=== PATIENT | male | born 1985 | race American Indian/Alaskan Native ===

== ENCOUNTER 2017-05-24 17:53 | Emergency (ER) | payer OTHER ==
[2017-05-24] MEDS ORDERED: FLEXERIL PO ONE (19:56)
[2017-05-24] MEDS ORDERED: MOTRIN PO ONE (19:56)
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
[2017-05-24 21:02] VITALS: BP 144/87
== END 2017-05-24 21:02 | disposition home or self-care (01) ==
LOC: ED 17:53
DX: S39.012A Strain of muscle, fascia and tendon of lower back, initial encounter (principal); I10 Essential (primary) hypertension; F17.200 Nicotine dependence, unspecified, uncomplicated; Z91.018 Allergy to other foods; V89.2XXA Person injured in unspecified motor-vehicle accident, traffic, initial encounter; Y93.89 Activity, other specified; Y99.8 Other external cause status; Y92.89 Other specified places as the place of occurrence of the external cause
CPT/HCPCS: 70450; 72040; 72100

== ENCOUNTER 2017-09-25 09:55 | Emergency (ER) | payer SELFPAY ==
[2017-09-25 10:17] LABS: Basophils % (Auto) 0.8 % (0.0-1.8); Eosinophils % (Auto) 0.4 % (0.0-4.3); Hemoglobin 16.1 gm/dl (11.8-15.2); Mean Corpuscular HGB Conc 34 % (32-34); Mean Corpuscular Hemoglobin 35 pg (28-32); Mean Corpuscular Volume 101 fl (84-94); Platelet Count 197 K/mm3 (140-440); Red Blood Count 4.67 M/mm3 (3.65-5.03); Red Cell Distribution Width 12.9 % (13.2-15.2); White Blood Count 9.3 K/mm3 (4.5-11.0)
[2017-09-25 10:39] LABS: Alanine Aminotransferase 38 units/L (7-56); Albumin 4.7 g/dL (3.9-5); Albumin/Globulin Ratio 1.2 %; Alkaline Phosphatase 72 units/L (35-129); Anion Gap 22 mmol/L; BUN/Creatinine Ratio 17; Blood Urea Nitrogen 15 mg/dL (9-20); Calcium 9.7 mg/dL (8.4-10.2); Carbon Dioxide 27 mmol/L (22-30); Chloride 94.9 mmol/L (98-107); Glucose 122 mg/dL (75-100); Lipase 236 units/L (13-60); Potassium 3.4 mmol/L (3.6-5.0); Sodium 140 mmol/L (137-145); Total Protein 8.5 g/dL (6.3-8.2)
[2017-09-25 10:42] LABS: Bacteria,Urine 1+ /HPF (Negative); Bilirubin,Urine Negative (Negative); Mucus,Urine 3+ /HPF
[2017-09-25 10:43] LABS: Blood,Urine Large (Negative); Ketones,Urine MODERATE mg/dL (Negative); Urobilinogen,Urine < 2.0 mg/dL (<2.0)
[2017-09-25 10:44] LABS: Leukocyte Esterase,Urine Negative (Negative); Nitrite,Urine Negative (Negative)
[2017-09-25] MEDS ORDERED: ZOFRAN IV ONE (11:48)
[2017-09-25] MEDS ORDERED: NACL 0.9% 1000 ML 1,000 ML IV ONE ×2 (11:48→14:41)
[2017-09-25] MEDS ORDERED: SUBLIMAZE IV ONE (11:48)
--- NOTE | 2017-09-25 11:59 | Emergency Department Report ---
HPI - General Chief Complaint: Abdominal Pain Time Seen by Provider: 09/25/17 11:28 - [facility] HPI: Villagomez 25 The patient is a 31-year-old male presenting with a chief complaint of abdominal pain. The patient states the past 2 days has had pain across the top of the stomach described as sharp in nature. Patient missed to nausea and vomiting but denies diarrhea or fever. Patient does admit to history of chills. Patient states he was diagnosed with pancreatitis and has had 4 or 5 flareups since his first diagnosis. The patient currently gives his pain score of 8/10 Location: Upper abdomen Duration: 2 days Quality: Sharp Severity: 8/10 Modifying factors: [see above] Context: [see above] Mode of transportation: Patient drove himself to the ED but agrees to be admitted ED Past Medical Hx - Past Medical History Hx Hypertension: Yes Additional medical history: pancreatitis - Surgical History Past Surgical History?: No - Family History Family history: no significant - Social History Smoking Status: Current Every Day Smoker (1/2 pack per day) Substance Use Type: None (denies illicit drug use), Alcohol (once a week) - Medications Home Medications: Home Medications Medication Instructions Recorded Confirmed Last Taken Type amLODIPine [Norvasc] 10 mg PO DAILY 09/25/17 09/25/17 Unknown History ED Review of Systems ROS: Stated complaint: ABD PAIN Other details as noted in HPI Constitutional: chills. denies: fever Gastrointestinal: abdominal pain, nausea, vomiting. denies: diarrhea Physical Exam - Physical Exam Vital Signs: Vital Signs 09/25/17 09/25/17 10:02 11:18 Temperature 98.8 F Pulse Rate 81 Respiratory 16 18 Rate Blood Pressure 134/107 O2 Sat by Pulse 97 Oximetry Physical Exam: GENERAL: The patient is well-developed well-nourished male lying on stretcher not appearing to be in acute distress. [] HEENT: Normocephalic. Atraumatic. Extraocular motions are intact. Patient has moist mucous membranes. NECK: Supple. Trachea midline CHEST/LUNGS: Clear to auscultation. There is no respiratory distress noted. HEART/CARDIOVASCULAR: Regular. There is no tachycardia. There is no gallop rub or murmur. ABDOMEN: Abdomen is soft, with diffuse tenderness to palpation. Patient has normal bowel sounds. There is no abdominal distention. SKIN: There is no rash. There is no edema. There is no diaphoresis. NEURO: The patient is awake, alert, and oriented. The patient is cooperative. The patient has normal speech MUSCULOSKELETAL: There is no evidence of acute injury. ED Course Vital Signs 09/25/17 09/25/17 10:02 11:18 Temperature 98.8 F Pulse Rate 81 Respiratory 16 18 Rate Blood Pressure 134/107 O2 Sat by Pulse 97 Oximetry ED Medical Decision Making - Lab Data Result diagrams: 09/25/17 10:06 09/25/17 10:06 Laboratory Tests 09/25/17 09/25/17 09/25/17 10:06 10:06 Unknown WBC 9.3 RBC 4.67 Hgb 16.1 H Hct 47.0 H MCV 101 H MCH 35 H MCHC 34 RDW 12.9 L Plt Count 197 Lymph % (Auto) 9.7 L Baxter % (Auto) 4.7 Eos % (Auto) 0.4 Baso % (Auto) 0.8 Lymph # 0.9 L Baxter # 0.4 Eos # 0.0 Baso # 0.1 Seg Neutrophils % 84.4 H Seg Neutrophils # 7.8 H Sodium 140 Potassium 3.4 L Chloride 94.9 L Carbon Dioxide 27 Anion Gap 22 BUN 15 Creatinine 0.9 Estimated GFR > 60 BUN/Creatinine Ratio 17 Glucose 122 H Calcium 9.7 Total Bilirubin 1.00 AST 31 ALT 38 Alkaline Phosphatase 72 Total Protein 8.5 H Albumin 4.7 Albumin/Globulin Ratio 1.2 Lipase 236 H Urine Color Yellow Urine Turbidity Clear Urine pH 5.0 Ur Specific [place] 1.035 H Urine Protein 100 mg/dl Urine Glucose (UA) Negative Urine Ketones Moderate Urine Blood Large A Urine Nitrite Negative Urine Bilirubin Negative Urine Urobilinogen < 2.0 Ur Leukocyte Esterase Negative Urine WBC (Auto) 5.0 Urine RBC (Auto) 12.0 U Epithel Cells (Auto) 1.0 Urine Bacteria (Auto) 1+ Urine Mucus 3+ - Differential Diagnosis pancreatitis Critical care attestation.: If time is entered above; I have spent that time in minutes in the direct care of this critically ill patient, excluding procedure time. ED Disposition Clinical Impression: Acute pancreatitis, Acute abdominal pain Disposition: OP ADMIT IP TO THIS HOSP Is pt being admited?: Yes Does the pt Need Aspirin: No Condition: Fair Referrals: PRIMARY CARE, [Primary Care Provider] - 3-5 Days Time of Disposition: 12:00 (hospitalist paged (Dr. Lowry))
--- NOTE | 2017-09-25 15:40 | History and Physical Report ---
History of Present Illness Chief complaint: My stomach hurts History of present illness: 31YO Male with Nicotine Dependence, Chronic Pancreatitis evaluated for abdominal pain. Pain 8/10, started 2 days ago. Nonradiating, persistent, worse with meals, buthas improved over the past 6 hours. Pt seen and evaluated in ED and found to have no significant findings. Pt discharged home, and counseled regarding ETOH cessation. Past History Past Medical History: other (Nicotine Dependence,) Past Surgical History: No surgical history, Other (reviewed) Social history: single, smoking, alcohol abuse Family history: no significant family history Medications and Allergies Allergies Allergy/AdvReac Type Severity Reaction Status Date / Time tomato Allergy Shortness Verified 05/24/17 18:12 of Breath Home Medications Medication Instructions Recorded Confirmed Last Taken Type Ondansetron [Zofran Odt] 4 mg PO BID PRN #15 tab.rapdis 09/25/17 Unknown Rx amLODIPine [Norvasc] 10 mg PO DAILY 09/25/17 09/25/17 Unknown History oxyCODONE /ACETAMINOPHEN [Percocet 1 tab PO Q4HR #15 tab 09/25/17 Unknown Rx 5/325] Active Meds: Active Medications Sodium Chloride (Nacl 0.9% 1000 Ml) 1,000 mls @ 999 mls/hr IV BOLUS ONE Stop: 09/25/17 15:41 Last Admin: 09/25/17 14:44 Dose: 999 mls/hr Review of Systems Constitutional: no weight loss, no weight gain, no fever, no chills Ears, nose, mouth and throat: no ear pain, no ear discharge, no tinnitis, no decreased hearing Cardiovascular: no chest pain, no orthopnea, no palpitations, no rapid/ irregular heart beat, no edema Respiratory: no cough, no cough with sputum, no excessive sputum, no hemoptysis Gastrointestinal: abdominal pain, no nausea, no vomiting, no diarrhea Genitourinary Male: no hematuria, no flank pain, no discharge, no urinary frequency Rectal: no pain, no incontinence, no bleeding Musculoskeletal: no neck stiffness, no neck pain, no shooting arm pain, no arm numbness/tingling, no low back pain Integumentary: no rash, no pruritis, no redness, no sores, no wounds Neurological: no head injury, no transient paralysis, no paralysis, no weakness Psychiatric: no memory loss, no change in sleep habits, no insomnia Endocrine: no cold intolerance, no heat intolerance, no polyphagia Hematologic/Lymphatic: no easy bruising, no easy bleeding Allergic/Immunologic: no urticaria, no allergic rhinitis, no wheezing Exam - Constitutional Vitals: Temp Pulse Resp BP Pulse Ox 98.8 F 81 18 134/107 97 09/25/17 10:02 09/25/17 10:02 09/25/17 11:18 09/25/17 10:02 09/25/17 10:02 General appearance: Present: no acute distress, well-nourished - EENT Eyes: Present: PERRL ENT: hearing intact, clear oral mucosa - Neck Neck: Present: supple, normal ROM - Respiratory Respiratory effort: normal Respiratory: bilateral: CTA - Cardiovascular Heart Sounds: Present: S1 & S2. Absent: rub, click - Extremities Extremities: pulses symmetrical, No edema Peripheral Pulses: within normal limits - Abdominal General gastrointestinal: Present: soft, non-tender, non-distended, normal bowel sounds Male genitourinary: Present: normal - Integumentary Integumentary: Present: clear, warm, dry - Musculoskeletal Musculoskeletal: gait normal, strength equal bilaterally - Psychiatric Psychiatric: appropriate mood/affect, intact judgment & insight - Neurologic Neurologic: CNII-XII intact, moves all extremities Results - Labs CBC & Chem 7: 09/25/17 10:06 09/25/17 10:06 Labs: Abnormal lab results 09/25/17 09/25/17 09/25/17 Range/Units 10:06 10:06 Unknown Hgb 16.1 H (11.8-15.2) gm/dl Hct 47.0 H (35.5-45.6) % MCV 101 H (84-94) fl MCH 35 H (28-32) pg RDW 12.9 L (13.2-15.2) % Lymph % (Auto) 9.7 L (13.4-35.0) % Lymph # 0.9 L (1.2-5.4) K/mm3 Seg Neutrophils % 84.4 H (40.0-70.0) % Seg Neutrophils # 7.8 H (1.8-7.7) K/mm3 Potassium 3.4 L (3.6-5.0) mmol/L Chloride 94.9 L (98-107) mmol/L Glucose 122 H (75-100) mg/dL Total Protein 8.5 H (6.3-8.2) g/dL Lipase 236 H (13-60) units/L Ur Specific [place] 1.035 H (1.003-1.030) Urine Blood Large A (Negative) Assessment and Plan - Patient Problems (1) Chronic pancreatitis Status: Acute Plan to address problem: Pain control, ivf resiscitation, ETOH cessation, f/u pcp 1wk,
[2017-09-25 16:34] VITALS: BP 153/94
== END 2017-09-25 16:36 | disposition admitted as inpatient to this hospital (09) ==
LOC: ED 09:55
DX: K85.90 Acute pancreatitis without necrosis or infection, unspecified (principal); I10 Essential (primary) hypertension; F17.200 Nicotine dependence, unspecified, uncomplicated
CPT/HCPCS: 36415; 80053; 81001; 83690; 85025; 96361; 96374; 96375; 99283; J2405; J3010; J7030

== ENCOUNTER 2018-12-01 21:05 | Emergency (ER) | payer OTHER ==
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
== END 2018-12-01 23:01 | disposition home or self-care (01) ==
LOC: ED 21:05
DX: S80.11XA Contusion of right lower leg, initial encounter (principal); I10 Essential (primary) hypertension; F17.200 Nicotine dependence, unspecified, uncomplicated; Z91.018 Allergy to other foods; X58.XXXA Exposure to other specified factors, initial encounter; Y93.89 Activity, other specified; Y92.89 Other specified places as the place of occurrence of the external cause; Y99.8 Other external cause status
CPT/HCPCS: 99281

== ENCOUNTER 2020-07-02 21:36 | Emergency (ER) | payer SELFPAY ==
[2020-07-03 00:28] LABS: Bilirubin,Urine NEG (Negative); Blood,Urine NEG (Negative); Color,Urine Colorless (Yellow); Protein,Urine <15 mg/dL mg/dL (Negative); Urobilinogen,Urine < 2.0 mg/dL (<2.0); WBC,Urine < 1.0 /HPF (0.0-6.0)
[2020-07-03 00:41] LABS: Amphetamine Screen,Urine PRESUMPTIVE NEGATIVE; Benzodiazepines Screen,Urine PRESUMPTIVE NEGATIVE; Cannabinoid Screen,Urine PRESUMPTIVE NEGATIVE; Cocaine Screen,Urine PRESUMPTIVE NEGATIVE; Methadone Screen,Urine PRESUMPTIVE NEGATIVE; Opiate Screen,Urine PRESUMPTIVE NEGATIVE
[2020-07-03 00:50] LABS: Basophils % (Auto) 0.5 % (0.0-1.8); Eosinophils # (Auto) 0.1 K/mm3 (0.0-0.4); Eosinophils % (Auto) 1.9 % (0.0-4.3); Lymphocytes # (Auto) 1.6 K/mm3 (1.2-5.4); Mean Corpuscular HGB Conc 36 % (32-34); Mean Corpuscular Volume 97 fl (84-94); Monocytes # (Auto) 0.4 K/mm3 (0.0-0.8); Monocytes % (Auto) 6.3 % (0.0-7.3); Platelet Count 221 K/mm3 (140-440); Red Blood Count 4.35 M/mm3 (3.65-5.03); Red Cell Distribution Width 14.1 % (13.2-15.2)
[2020-07-03 01:01] LABS: Hematocrit 41.9 % (35.5-45.6); Hemoglobin 15.1 gm/dl (11.8-15.2)
[2020-07-03 01:03] LABS: BUN/Creatinine Ratio 15; Blood Urea Nitrogen 12 mg/dL (9-20); Calcium 9.6 mg/dL (8.4-10.2); Hemolysis Index 5
[2020-07-03 02:01] VITALS: BP 140/93
--- NOTE | 2020-07-03 06:32 | Emergency Department Report ---
ED General Adult HPI - General Chief complaint: Alcohol Stated complaint: DETOX Time Seen by Provider: 07/03/20 02:18 Source: patient Mode of arrival: Ambulatory Limitations: No Limitations - History of Present Illness Initial comments: This is a 34-year old probably homeless -[place] male who states he came here for medical clearance. He states that he was in a detox program which he identifies as nearby but not well by name. He states that he was a client there about a week ago. He states he came here for medical clearance. He states he is able to return once he is medically clear. He is not suicidal depressed or hallucinating. He has no current complaints he is resting comfortably. -: unknown Severity scale (0 -10): 0 - Related Data Home Medications Medication Instructions Recorded Confirmed Last Taken amLODIPine [Norvasc] 10 mg PO DAILY 09/25/17 09/25/17 Unknown Previous Rx's Medication Instructions Recorded Last Taken Type Ondansetron [Zofran Odt] 4 mg PO BID PRN #15 tab.rapdis 09/25/17 Unknown Rx oxyCODONE /ACETAMINOPHEN [Percocet 1 tab PO Q4HR #15 tab 09/25/17 Unknown Rx 5/325] Allergies Allergy/AdvReac Type Severity Reaction Status Date / Time tomato Allergy Shortness Verified 05/24/17 18:12 of Breath ED Review of Systems ROS: Stated complaint: DETOX Other details as noted in HPI Constitutional: denies: chills, fever Eyes: denies: eye pain, vision change ENT: denies: ear pain, throat pain Respiratory: denies: cough, shortness of breath, wheezing Cardiovascular: denies: chest pain, palpitations Endocrine: no symptoms reported Gastrointestinal: denies: abdominal pain, nausea, diarrhea Genitourinary: denies: urgency, dysuria Musculoskeletal: denies: back pain, joint swelling, arthralgia Skin: denies: rash, lesions Neurological: denies: headache, weakness, paresthesias Psychiatric: denies: anxiety, depression Hematological/Lymphatic: denies: easy bleeding, easy bruising ED Past Medical Hx - Past Medical History Previous Medical History?: Yes Hx Hypertension: Yes Additional medical history: pancreatitis - Surgical History Past Surgical History?: Yes Additional Surgical History: knee - Social History Smoking Status: Current Every Day Smoker Substance Use Type: Alcohol - Medications Home Medications: Home Medications Medication Instructions Recorded Confirmed Last Taken Type Ondansetron [Zofran Odt] 4 mg PO BID PRN #15 tab.rapdis 09/25/17 Unknown Rx amLODIPine [Norvasc] 10 mg PO DAILY 09/25/17 09/25/17 Unknown History oxyCODONE /ACETAMINOPHEN [Percocet 1 tab PO Q4HR #15 tab 09/25/17 Unknown Rx 5/325] ED Physical Exam - General Limitations: No Limitations General appearance: alert, in no apparent distress - Head Head exam: Present: atraumatic, normocephalic - Eye Eye exam: Present: normal appearance, PERRL, EOMI. Absent: scleral icterus - ENT ENT exam: Present: mucous membranes moist - Neck Neck exam: Present: normal inspection - Respiratory Respiratory exam: Present: normal lung sounds bilaterally. Absent: respiratory distress - Cardiovascular Cardiovascular Exam: Present: regular rate, normal rhythm. Absent: systolic murmur, diastolic murmur, rubs, gallop - GI/Abdominal GI/Abdominal exam: Present: soft, normal bowel sounds. Absent: distended, tenderness, guarding, rebound, rigid - Rectal Rectal exam: Present: deferred - Extremities Exam Extremities exam: Present: normal inspection - Back Exam Back exam: Present: normal inspection - Neurological Exam Neurological exam: Present: alert, oriented X3, CN II-XII intact. Absent: motor sensory deficit - Psychiatric Psychiatric exam: Present: normal affect, normal mood - Skin Skin exam: Present: warm, dry, intact, normal color. Absent: rash ED Course Vital Signs 07/02/20 07/03/20 21:45 02:00 Temperature 97.2 F L 97.4 F L Pulse Rate 103 H 88 Respiratory 16 18 Rate Blood Pressure 131/86 Blood Pressure 140/93 [Left] O2 Sat by Pulse 98 100 Oximetry - Reevaluation(s) Reevaluation #1: Patient displays no evidence of alcohol withdrawal. He is mentally competent. He is fully ambulatory. He is medically clear for participation in a detox program if that is what he desires. He will be discharged. 07/03/20 06:53 Reevaluation #2: There was no evidence of alcohol withdrawal syndrome. 07/03/20 06:55 ED Medical Decision Making - Lab Data Result diagrams: 07/03/20 00:17 07/03/20 00:17 Laboratory Results - last 24 hr 07/02/20 07/02/20 07/03/20 23:19 23:19 00:17 WBC RBC Hgb Hct MCV MCH MCHC RDW Plt Count Lymph % (Auto) [place] % (Auto) Eos % (Auto) Baso % (Auto) Lymph # (Auto) [place] # (Auto) Eos # (Auto) Baso # (Auto) Seg Neutrophils % Seg Neutrophils # Sodium Potassium Chloride Carbon Dioxide Anion Gap BUN Creatinine Estimated GFR BUN/Creatinine Ratio Glucose Calcium Magnesium Urine Color Colorless Urine Turbidity Clear Urine pH 6.0 Ur Specific [place] 1.002 L Urine Protein <15 mg/dl Urine Glucose (UA) Neg Urine Ketones Neg Urine Blood Neg Urine Nitrite Neg Urine Bilirubin Neg Urine Urobilinogen < 2.0 Ur Leukocyte Esterase Neg Urine WBC (Auto) < 1.0 Urine RBC (Auto) 0.0 Salicylates < 0.3 L Urine Opiates Screen Presumptive negative Urine Methadone Screen Presumptive negative Acetaminophen Ur Barbiturates Screen Presumptive negative Ur Phencyclidine Scrn Presumptive negative Ur Amphetamines Screen Presumptive negative U Benzodiazepines Scrn Presumptive negative Urine Cocaine Screen Presumptive negative U Marijuana (THC) Screen Presumptive negative Drugs of Abuse Note Disclamer Plasma/Serum Alcohol 07/03/20 07/03/20 07/03/20 00:17 00:17 00:17 WBC RBC Hgb Hct MCV MCH MCHC RDW Plt Count Lymph % (Auto) [place] % (Auto) Eos % (Auto) Baso % (Auto) Lymph # (Auto) [place] # (Auto) Eos # (Auto) Baso # (Auto) Seg Neutrophils % Seg Neutrophils # Sodium 139 Potassium 4.0 Chloride 99.4 Carbon Dioxide 23 Anion Gap 21 BUN 12 Creatinine 0.8 Estimated GFR > 60 BUN/Creatinine Ratio 15 Glucose 104 H Calcium 9.6 Magnesium Urine Color Urine Turbidity Urine pH Ur Specific [place] Urine Protein Urine Glucose (UA) Urine Ketones Urine Blood Urine Nitrite Urine Bilirubin Urine Urobilinogen Ur Leukocyte Esterase Urine WBC (Auto) Urine RBC (Auto) Salicylates Urine Opiates Screen Urine Methadone Screen Acetaminophen 5.0 L Ur Barbiturates Screen Ur Phencyclidine Scrn Ur Amphetamines Screen U Benzodiazepines Scrn Urine Cocaine Screen U Marijuana (THC) Screen Drugs of Abuse Note Plasma/Serum Alcohol 0.28 H 07/03/20 07/03/20 00:17 02:23 WBC 7.1 RBC 4.35 Hgb 15.1 Hct 41.9 MCV 97 H MCH 35 H MCHC 36 H RDW 14.1 Plt Count 221 Lymph % (Auto) 23.0 [place] % (Auto) 6.3 Eos % (Auto) 1.9 Baso % (Auto) 0.5 Lymph # (Auto) 1.6 [place] # (Auto) 0.4 Eos # (Auto) 0.1 Baso # (Auto) 0.0 Seg Neutrophils % 68.3 Seg Neutrophils # 4.8 Sodium Potassium Chloride Carbon Dioxide Anion Gap BUN Creatinine Estimated GFR BUN/Creatinine Ratio Glucose Calcium Magnesium 2.40 H Urine Color Urine Turbidity Urine pH Ur Specific [place] Urine Protein Urine Glucose (UA) Urine Ketones Urine Blood Urine Nitrite Urine Bilirubin Urine Urobilinogen Ur Leukocyte Esterase Urine WBC (Auto) Urine RBC (Auto) Salicylates Urine Opiates Screen Urine Methadone Screen Acetaminophen Ur Barbiturates Screen Ur Phencyclidine Scrn Ur Amphetamines Screen U Benzodiazepines Scrn Urine Cocaine Screen U Marijuana (THC) Screen Drugs of Abuse Note Plasma/Serum Alcohol Critical care attestation.: If time is entered above; I have spent that time in minutes in the direct care of this critically ill patient, excluding procedure time. ED Disposition Clinical Impression: Alcohol abuse, Medical clearance for psychiatric admission Disposition: DC-01 TO HOME OR SELFCARE Is pt being admited?: No Does the pt Need Aspirin: No Condition: Stable Instructions: Abuse of Alcohol (ED) Additional Instructions: There is no medical contraindication for your participation in a detox program. You are medically clear. Referrals: PRIMARY CARE, [Primary Care Provider] - 3-5 Days [facility] [Outside] - 3-5 Days [facility] [Outside] - 3-5 Days Time of Disposition: 06:54
== END 2020-07-03 10:00 | disposition home or self-care (01) ==
LOC: ED 21:36
DX: F10.10 Alcohol abuse, uncomplicated (principal); I10 Essential (primary) hypertension; F17.200 Nicotine dependence, unspecified, uncomplicated; Z00.8 Encounter for other general examination; Z91.018 Allergy to other foods; Z79.899 Other long term (current) drug therapy; Z98.890 Other specified postprocedural states
CPT/HCPCS: 36415; 80048; 80307; 80320; 81001; 83735; 85025; G0480

== ENCOUNTER 2020-07-05 19:40 | Emergency (ER) | payer SELFPAY ==
[2020-07-05 19:49] VITALS: BP 137/83
--- NOTE | 2020-07-05 21:36 | Emergency Department Report ---
ED General Adult HPI - General Chief complaint: Medical Clearance Stated complaint: MEDICAL CLEARANCE Time Seen by Provider: 07/05/20 21:00 Source: patient Mode of arrival: Ambulatory Limitations: No Limitations - History of Present Illness Initial comments: 34-year-old -Citizen Of [place] male patient presents for medical clearance for admission to a medical facility for detox from alcohol today. Patient reports he is attempting to get admitted to [facility]. He denies any chest pain, shortness of breath, abdominal pain, fever/chills/sweats, or joint pains. He does report a mild 2/10 in severity headache x30 minutes. He denies any dizziness, vision changes, numbness/tingling/weakness in his limbs, confusion, or difficulty with speech/ambulation. He reports past medical history of hypertension - Related Data Home Medications Medication Instructions Recorded Confirmed Last Taken amLODIPine [Norvasc] 10 mg PO DAILY 09/25/17 07/03/20 07/02/20 Allergies Allergy/AdvReac Type Severity Reaction Status Date / Time tomato Allergy Shortness Verified 05/24/17 18:12 of Breath ED Review of Systems ROS: Stated complaint: MEDICAL CLEARANCE Other details as noted in HPI Constitutional: denies: chills, fever Eyes: denies: vision change Respiratory: denies: cough, shortness of breath Cardiovascular: denies: chest pain, palpitations, edema, syncope Gastrointestinal: denies: abdominal pain, nausea, vomiting Genitourinary: denies: urgency, dysuria Musculoskeletal: denies: joint swelling, arthralgia Skin: denies: change in color Neurological: headache. denies: numbness, paresthesias, confusion, abnormal gait Hematological/Lymphatic: denies: easy bruising ED Past Medical Hx - Past Medical History Hx Hypertension: Yes Additional medical history: pancreatitis - Surgical History Additional Surgical History: knee - Social History Smoking Status: Current Every Day Smoker Substance Use Type: Alcohol, Marijuana - Medications Home Medications: Home Medications Medication Instructions Recorded Confirmed Last Taken Type amLODIPine [Norvasc] 10 mg PO DAILY 09/25/17 07/03/20 07/02/20 History ED Physical Exam - General Limitations: No Limitations General appearance: alert, in no apparent distress - Head Head exam: Present: atraumatic, normocephalic - Eye Eye exam: Present: normal appearance, PERRL, EOMI. Absent: scleral icterus - ENT ENT exam: Present: mucous membranes moist - Neck Neck exam: Present: normal inspection - Respiratory Respiratory exam: Present: normal lung sounds bilaterally. Absent: respiratory distress - Cardiovascular Cardiovascular Exam: Present: regular rate, normal rhythm. Absent: systolic murmur, diastolic murmur, rubs, gallop - GI/Abdominal GI/Abdominal exam: Present: soft, normal bowel sounds. Absent: distended, tenderness, guarding, rebound, rigid - Extremities Exam Extremities exam: Present: normal inspection - Back Exam Back exam: Present: normal inspection - Neurological Exam Neurological exam: Present: alert, oriented X3, CN II-XII intact, normal gait. Absent: motor sensory deficit - Expanded Neurological Exam Expanded Cerebellar function: Finger to Nose: Normal, [place]: Normal Motor strength exam: RUE: 5, LUE: 5, RLE: 5, LLE: 5 - Psychiatric Psychiatric exam: Present: normal affect - Skin Skin exam: Present: warm, dry, intact, normal color. Absent: rash ED Course Vital Signs 07/05/20 19:48 Temperature 98.1 F Pulse Rate 85 Respiratory 18 Rate Blood Pressure 137/83 O2 Sat by Pulse 97 Oximetry ED Medical Decision Making - Lab Data Result diagrams: 07/05/20 21:57 07/05/20 21:57 Lab Results 07/05/20 07/05/20 07/05/20 Range/Units 21:15 21:15 21:57 WBC (4.5-11.0) K/mm3 RBC (3.65-5.03) M/mm3 Hgb (11.8-15.2) gm/dl Hct (35.5-45.6) % MCV (84-94) fl MCH (28-32) pg MCHC (32-34) % RDW (13.2-15.2) % Plt Count (140-440) K/mm3 Lymph % (Auto) (13.4-35.0) % [place] % (Auto) (0.0-7.3) % Eos % (Auto) (0.0-4.3) % Baso % (Auto) (0.0-1.8) % Lymph # (Auto) (1.2-5.4) K/mm3 [place] # (Auto) (0.0-0.8) K/mm3 Eos # (Auto) (0.0-0.4) K/mm3 Baso # (Auto) (0.0-0.1) K/mm3 Seg Neutrophils % (40.0-70.0) % Seg Neutrophils # (1.8-7.7) K/mm3 Sodium (137-145) mmol/L Potassium (3.6-5.0) mmol/L Chloride (98-107) mmol/L Carbon Dioxide (22-30) mmol/L Anion Gap mmol/L BUN (9-20) mg/dL Creatinine (0.8-1.3) mg/dL Estimated GFR ml/min BUN/Creatinine Ratio % Glucose (75-100) mg/dL Calcium (8.4-10.2) mg/dL Total Bilirubin (0.1-1.2) mg/dL Direct Bilirubin (0-0.2) mg/dL Indirect Bilirubin mg/dL AST (5-40) units/L ALT (7-56) units/L Alkaline Phosphatase (35-129) units/L Total Protein (6.3-8.2) g/dL Albumin (3.9-5) g/dL Albumin/Globulin Ratio % Urine Color Colorless (Yellow) Urine Turbidity Clear (Clear) Urine pH 7.0 (5.0-7.0) Ur Specific [place] 1.002 L (1.003-1.030) Urine Protein <15 mg/dl (Negative) mg/dL Urine Glucose (UA) Neg (Negative) mg/dL Urine Ketones Neg (Negative) mg/dL Urine Blood Sm (Negative) Urine Nitrite Neg (Negative) Urine Bilirubin Neg (Negative) Urine Urobilinogen < 2.0 (<2.0) mg/dL Ur Leukocyte Esterase Neg (Negative) Urine WBC (Auto) < 1.0 (0.0-6.0) /HPF Urine RBC (Auto) 1.0 (0.0-6.0) /HPF Salicylates < 0.3 L (2.8-20.0) mg/dL Urine Opiates Screen Presumptive negative Urine Methadone Screen Presumptive negative Acetaminophen (10.0-30.0) ug/mL Ur Barbiturates Screen Presumptive negative Ur Phencyclidine Scrn Presumptive negative Ur Amphetamines Screen Presumptive negative U Benzodiazepines Scrn Presumptive negative Urine Cocaine Screen Presumptive negative U Marijuana (THC) Screen Presumptive negative Drugs of Abuse Note Disclamer Plasma/Serum Alcohol (0-0.07) % 07/05/20 07/05/20 07/05/20 Range/Units 21:57 21:57 21:57 WBC (4.5-11.0) K/mm3 RBC (3.65-5.03) M/mm3 Hgb (11.8-15.2) gm/dl Hct (35.5-45.6) % MCV (84-94) fl MCH (28-32) pg MCHC (32-34) % RDW (13.2-15.2) % Plt Count (140-440) K/mm3 Lymph % (Auto) (13.4-35.0) % [place] % (Auto) (0.0-7.3) % Eos % (Auto) (0.0-4.3) % Baso % (Auto) (0.0-1.8) % Lymph # (Auto) (1.2-5.4) K/mm3 [place] # (Auto) (0.0-0.8) K/mm3 Eos # (Auto) (0.0-0.4) K/mm3 Baso # (Auto) (0.0-0.1) K/mm3 Seg Neutrophils % (40.0-70.0) % Seg Neutrophils # (1.8-7.7) K/mm3 Sodium 140 (137-145) mmol/L Potassium 3.7 (3.6-5.0) mmol/L Chloride 100.8 (98-107) mmol/L Carbon Dioxide 25 (22-30) mmol/L Anion Gap 18 mmol/L BUN 9 (9-20) mg/dL Creatinine 0.7 L (0.8-1.3) mg/dL Estimated GFR > 60 ml/min BUN/Creatinine Ratio 13 % Glucose 111 H (75-100) mg/dL Calcium 9.4 (8.4-10.2) mg/dL Total Bilirubin (0.1-1.2) mg/dL Direct Bilirubin (0-0.2) mg/dL Indirect Bilirubin mg/dL AST (5-40) units/L ALT (7-56) units/L Alkaline Phosphatase (35-129) units/L Total Protein (6.3-8.2) g/dL Albumin (3.9-5) g/dL Albumin/Globulin Ratio % Urine Color (Yellow) Urine Turbidity (Clear) Urine pH (5.0-7.0) Ur Specific [place] (1.003-1.030) Urine Protein (Negative) mg/dL Urine Glucose (UA) (Negative) mg/dL Urine Ketones (Negative) mg/dL Urine Blood (Negative) Urine Nitrite (Negative) Urine Bilirubin (Negative) Urine Urobilinogen (<2.0) mg/dL Ur Leukocyte Esterase (Negative) Urine WBC (Auto) (0.0-6.0) /HPF Urine RBC (Auto) (0.0-6.0) /HPF Salicylates (2.8-20.0) mg/dL Urine Opiates Screen Urine Methadone Screen Acetaminophen 5.0 L (10.0-30.0) ug/mL Ur Barbiturates Screen Ur Phencyclidine Scrn Ur Amphetamines Screen U Benzodiazepines Scrn Urine Cocaine Screen U Marijuana (THC) Screen Drugs of Abuse Note Plasma/Serum Alcohol 0.05 (0-0.07) % 07/05/20 07/05/20 Range/Units 21:57 21:57 WBC 3.7 L (4.5-11.0) K/mm3 RBC 4.02 (3.65-5.03) M/mm3 Hgb 13.8 (11.8-15.2) gm/dl Hct 39.8 (35.5-45.6) % MCV 99 H (84-94) fl MCH 34 H (28-32) pg MCHC 35 H (32-34) % RDW 13.9 (13.2-15.2) % Plt Count 200 (140-440) K/mm3 Lymph % (Auto) 31.8 (13.4-35.0) % [place] % (Auto) 9.5 H (0.0-7.3) % Eos % (Auto) 2.3 (0.0-4.3) % Baso % (Auto) 0.9 (0.0-1.8) % Lymph # (Auto) 1.2 (1.2-5.4) K/mm3 [place] # (Auto) 0.3 (0.0-0.8) K/mm3 Eos # (Auto) 0.1 (0.0-0.4) K/mm3 Baso # (Auto) 0.0 (0.0-0.1) K/mm3 Seg Neutrophils % 55.5 (40.0-70.0) % Seg Neutrophils # 2.0 (1.8-7.7) K/mm3 Sodium (137-145) mmol/L Potassium (3.6-5.0) mmol/L Chloride (98-107) mmol/L Carbon Dioxide (22-30) mmol/L Anion Gap mmol/L BUN (9-20) mg/dL Creatinine (0.8-1.3) mg/dL Estimated GFR ml/min BUN/Creatinine Ratio % Glucose (75-100) mg/dL Calcium (8.4-10.2) mg/dL Total Bilirubin 0.20 (0.1-1.2) mg/dL Direct Bilirubin < 0.2 (0-0.2) mg/dL Indirect Bilirubin 0.0 mg/dL AST 25 (5-40) units/L ALT 20 (7-56) units/L Alkaline Phosphatase 71 (35-129) units/L Total Protein 7.6 (6.3-8.2) g/dL Albumin 4.8 (3.9-5) g/dL Albumin/Globulin Ratio 1.7 % Urine Color (Yellow) Urine Turbidity (Clear) Urine pH (5.0-7.0) Ur Specific [place] (1.003-1.030) Urine Protein (Negative) mg/dL Urine Glucose (UA) (Negative) mg/dL Urine Ketones (Negative) mg/dL Urine Blood (Negative) Urine Nitrite (Negative) Urine Bilirubin (Negative) Urine Urobilinogen (<2.0) mg/dL Ur Leukocyte Esterase (Negative) Urine WBC (Auto) (0.0-6.0) /HPF Urine RBC (Auto) (0.0-6.0) /HPF Salicylates (2.8-20.0) mg/dL Urine Opiates Screen Urine Methadone Screen Acetaminophen (10.0-30.0) ug/mL Ur Barbiturates Screen Ur Phencyclidine Scrn Ur Amphetamines Screen U Benzodiazepines Scrn Urine Cocaine Screen U Marijuana (THC) Screen Drugs of Abuse Note Plasma/Serum Alcohol (0-0.07) % - Medical Decision Making 34-year-old -Citizen Of [place] male patient presents for medical clearance for admission to a medical facility for detox from alcohol today. Patient reports he is attempting to get admitted to [facility]. He denies any chest pain, shortness of breath, abdominal pain, fever/chills/sweats, or joint pains. He does report a mild 2/10 in severity headache x30 minutes. He denies any dizziness, vision changes, numbness/tingling/weakness in his limbs, confusion, or difficulty with speech/ambulation. He reports past medical history of hypertension Physical and neuro exam are normal. No acute abnormalities noted on CBC, CMP, or UA. Vitals are normal. Patient is alert and oriented and denies SI/HI. He is medically cleared for admission to detox facility. Critical care attestation.: If time is entered above; I have spent that time in minutes in the direct care of this critically ill patient, excluding procedure time. ED Disposition Clinical Impression: Medical clearance for psychiatric admission, Alcohol abuse Disposition: DC-01 TO HOME OR SELFCARE Is pt being admited?: No Condition: Stable Instructions: Medical Clearance for Psychiatric Care (ED), Abuse of Alcohol (ED) Additional Instructions: You are medically cleared for admission to a detox facility for alcohol abuse. Referrals: PRIMARY CARE [Primary Care Provider] - 3-5 Days
[2020-07-05] MEDS ORDERED: IBUPROFEN 800 MG TAB PO ONE (21:56)
[2020-07-05 22:32] LABS: Basophils % (Auto) 0.9 % (0.0-1.8); Eosinophils # (Auto) 0.1 K/mm3 (0.0-0.4); Eosinophils % (Auto) 2.3 % (0.0-4.3); Hematocrit 39.8 % (35.5-45.6); Hemoglobin 13.8 gm/dl (11.8-15.2); Lymphocytes # (Auto) 1.2 K/mm3 (1.2-5.4); Lymphocytes % (Auto) 31.8 % (13.4-35.0); Mean Corpuscular HGB Conc 35 % (32-34); Mean Corpuscular Volume 99 fl (84-94); Monocytes # (Auto) 0.3 K/mm3 (0.0-0.8); Monocytes % (Auto) 9.5 % (0.0-7.3); Platelet Count 200 K/mm3 (140-440); Red Blood Count 4.02 M/mm3 (3.65-5.03); Red Cell Distribution Width 13.9 % (13.2-15.2)
[2020-07-05 22:37] LABS: Blood Urea Nitrogen 9 mg/dL (9-20); Calcium 9.4 mg/dL (8.4-10.2); Hemolysis Index 17
[2020-07-05 22:39] LABS: Bilirubin,Urine NEG (Negative); Blood,Urine SM (Negative); Color,Urine Colorless (Yellow); Protein,Urine <15 mg/dL mg/dL (Negative); Urobilinogen,Urine < 2.0 mg/dL (<2.0); WBC,Urine < 1.0 /HPF (0.0-6.0)
[2020-07-05 22:39] LABS: Alanine Aminotransferase 20 units/L (7-56); Albumin 4.8 g/dL (3.9-5)
[2020-07-05 22:43] LABS: BUN/Creatinine Ratio 13; Bilirubin,Direct < 0.2 mg/dL (0-0.2)
[2020-07-05 22:46] LABS: Amphetamine Screen,Urine PRESUMPTIVE NEGATIVE; Benzodiazepines Screen,Urine PRESUMPTIVE NEGATIVE; Cannabinoid Screen,Urine PRESUMPTIVE NEGATIVE; Cocaine Screen,Urine PRESUMPTIVE NEGATIVE; Methadone Screen,Urine PRESUMPTIVE NEGATIVE; Opiate Screen,Urine PRESUMPTIVE NEGATIVE
== END 2020-07-05 23:57 | disposition home or self-care (01) ==
LOC: ED 19:40
DX: F10.129 Alcohol abuse with intoxication, unspecified (principal); F17.200 Nicotine dependence, unspecified, uncomplicated; F12.10 Cannabis abuse, uncomplicated; I10 Essential (primary) hypertension; Z91.018 Allergy to other foods; Z79.899 Other long term (current) drug therapy
CPT/HCPCS: 36415; 80048; 80076; 80307; 80320; 81001; 85025; G0480

== ENCOUNTER 2021-01-18 01:26 | Emergency (ER) | payer SELFPAY | END 2021-01-18 01:42 | disposition left against medical advice (07) | LOC: ED 01:26 | DX: Z53.21 Procedure and treatment not carried out due to patient leaving prior to being seen by health care provider (principal) ==

== ENCOUNTER 2021-01-18 08:33 | Emergency (ER) | payer SELFPAY ==
--- NOTE | 2021-01-18 08:51 | Event Note ---
ED Screening Note ED Screening Note: here for med clearance for detox from percocet here last night no labs drawn This initial assessment/diagnostic orders/clinical plan/treatment(s) is/are subject to change based on patients health status, clinical progression and re- assessment by fellow clinical providers in the ED. Further treatment and workup at subsequent clinical providers discretion. Patient/guardian urged not to elope from the ED as their condition may be serious if not clinically assessed and managed. Initial orders include: labs ua
--- NOTE | 2021-01-18 10:46 | Emergency Department Report ---
ED Medical Clearance HPI - General Chief complaint: Medical Clearance Stated complaint: MEDICAL CLEARANCE Time Seen by Provider: 01/18/21 08:49 Source: patient Mode of arrival: Ambulatory - History of Present Illness Initial comments: 35YO AGITATED MALE COMES TO ER REQUESTING MEDICAL CLEARANCE FOR HIS NARCOTIC- PERCOCET USE. NO HI NO SI NO A/V DUNN STATES HE WAS HERE LAST NIGHT BUT LEFT BECAUSE IT WAS TAKING SO LONG [facility]ER Complaint: medical clearance request -: Gradual Place: home Alledged Intoxication: No Compliant with Home Medications: No Traumatic Symptoms: denies traumatic injury Home medications: Home Medications Medication Instructions Recorded Confirmed Last Taken amLODIPine [Norvasc] 10 mg PO DAILY 09/25/17 07/03/20 07/02/20 Allergies/Adverse reactions: Allergies Allergy/AdvReac Type Severity Reaction Status Date / Time tomato Allergy Shortness Verified 05/24/17 18:12 of Breath ED Review of Systems ROS: Stated complaint: MEDICAL CLEARANCE Other details as noted in HPI Comment: All other systems reviewed and negative ED Past Medical Hx - Past Medical History Previous Medical History?: Yes Hx Hypertension: Yes Additional medical history: pancreatitis - Surgical History Past Surgical History?: Yes Additional Surgical History: knee - Family History Family history: no significant - Social History Smoking Status: Current Every Day Smoker Substance Use Type: Alcohol, Marijuana - Medications Home Medications: Home Medications Medication Instructions Recorded Confirmed Last Taken Type amLODIPine [Norvasc] 10 mg PO DAILY 09/25/17 07/03/20 07/02/20 History ED Physical Exam - General Limitations: No Limitations General appearance: alert, in no apparent distress - Head Head exam: Present: atraumatic, normocephalic - Eye Eye exam: Present: normal appearance - ENT ENT exam: Present: mucous membranes moist - Neck Neck exam: Present: normal inspection - Respiratory Respiratory exam: Present: normal lung sounds bilaterally. Absent: respiratory distress - Cardiovascular Cardiovascular Exam: Present: regular rate, normal rhythm. Absent: systolic murmur, diastolic murmur, rubs, gallop - GI/Abdominal GI/Abdominal exam: Present: soft, normal bowel sounds - Rectal Rectal exam: Present: deferred - Extremities Exam Extremities exam: Present: normal inspection - Back Exam Back exam: Present: normal inspection - Neurological Exam Neurological exam: Present: alert, oriented X3 - Psychiatric Psychiatric exam: Present: agitated - Skin Skin exam: Present: warm, dry, intact, normal color. Absent: rash ED Course Vital Signs 01/18/21 08:44 Temperature 97.5 F L Pulse Rate 89 Respiratory 18 Rate Blood Pressure 156/101 [Right] O2 Sat by Pulse 99 Oximetry ED Medical Decision Making - Lab Data Result diagrams: 01/18/21 10:42 01/18/21 10:42 - Medical Decision Making HERE LAST NIGHT. LEFT DUE TO WAIT- NO LABS/UA SENT AT THAT TIME. LABS COLLECTED TODAY PT GIVEN URINE CUP HE WALKED OUTSIDE TO USE PHONE AND SINCE THAT TIME I'VE BEEN UNABLE TO FIND HIM. Labs 01/18/21 10:42 WBC 6.8 RBC 4.57 Hgb 15.8 H Hct 45.6 MCV 100 H MCH 35 H MCHC 35 H RDW 13.5 Plt Count 238 Lymph % (Auto) 18.1 [place] % (Auto) 5.8 Eos % (Auto) 1.2 Baso % (Auto) 0.3 Lymph # (Auto) 1.2 [place] # (Auto) 0.4 Eos # (Auto) 0.1 Baso # (Auto) 0.0 Seg Neutrophils % 74.6 H Seg Neutrophils # 5.1 Vital Signs 01/18/21 08:44 Temperature 97.5 F L Pulse Rate 89 Respiratory 18 Rate Blood Pressure 156/101 [Right] O2 Sat by Pulse 99 Oximetry - Differential Diagnosis MED CLEARANCE FOR REHAB ED Disposition Clinical Impression: Medical clearance for psychiatric admission Disposition: ELOPED Is pt being admited?: No Does the pt Need Aspirin: No Condition: Stable Time of Disposition: 11:39
[2021-01-18 11:10] LABS: Basophils % (Auto) 0.3 % (0.0-1.8); Eosinophils # (Auto) 0.1 K/mm3 (0.0-0.4); Eosinophils % (Auto) 1.2 % (0.0-4.3); Hematocrit 45.6 % (35.5-45.6); Hemoglobin 15.8 gm/dl (11.8-15.2); Lymphocytes # (Auto) 1.2 K/mm3 (1.2-5.4); Lymphocytes % (Auto) 18.1 % (13.4-35.0); Mean Corpuscular HGB Conc 35 % (32-34); Mean Corpuscular Volume 100 fl (84-94); Monocytes # (Auto) 0.4 K/mm3 (0.0-0.8); Monocytes % (Auto) 5.8 % (0.0-7.3); Platelet Count 238 K/mm3 (140-440); Red Blood Count 4.57 M/mm3 (3.65-5.03); Red Cell Distribution Width 13.5 % (13.2-15.2)
[2021-01-18 12:10] LABS: Alanine Aminotransferase 17 units/L (7-56); Albumin 4.8 g/dL (3.9-5); BUN/Creatinine Ratio 11; Blood Urea Nitrogen 9 mg/dL (9-20); Hemolysis Index 34
[2021-01-18 12:33] LABS: Bilirubin,Urine NEG (Negative); Blood,Urine NEG (Negative); Color,Urine Colorless (Yellow); Protein,Urine <15 mg/dL mg/dL (Negative); RBC,Urine < 1.0 /HPF (0.0-6.0); Urobilinogen,Urine < 2.0 mg/dL (<2.0)
[2021-01-18 12:40] LABS: WBC,Urine < 1.0 /HPF (0.0-6.0)
--- NOTE | 2021-01-18 13:06 | Emergency Department Report ---
ED Recheck HPI - General Chief Complaint: Medical Clearance Stated Complaint: MEDICAL CLEARANCE Time Seen by Provider: 01/18/21 08:49 Source: patient Mode of arrival: Ambulatory Limitations: No Limitations - History of Present Illness Initial Comments: 3rd time pt has been to ER for med clearance for [place] today. He keeps leaving Pt wants detox from narcotics See prior notes no hi no si no AV hallucinations has been in detox in the past -: Gradual Returns Today for: other Symptoms Since Prior Visit: no new symptoms Associated Symptoms: none - Related Data Home Medications Medication Instructions Recorded Confirmed Last Taken amLODIPine [Norvasc] 10 mg PO DAILY 09/25/17 07/03/20 07/02/20 Allergies Allergy/AdvReac Type Severity Reaction Status Date / Time tomato Allergy Shortness Verified 05/24/17 18:12 of Breath ED Review of Systems ROS: Stated complaint: MEDICAL CLEARANCE Other details as noted in HPI Comment: All other systems reviewed and negative ED Past Medical Hx - Past Medical History Previous Medical History?: Yes Hx Hypertension: Yes Additional medical history: pancreatitis - Surgical History Past Surgical History?: Yes Additional Surgical History: knee - Family History Family history: no significant - Social History Smoking Status: Current Every Day Smoker Substance Use Type: Alcohol, Marijuana - Medications Home Medications: Home Medications Medication Instructions Recorded Confirmed Last Taken Type amLODIPine [Norvasc] 10 mg PO DAILY 09/25/17 07/03/20 07/02/20 History ED Physical Exam - General Limitations: No Limitations General appearance: alert, in no apparent distress - Head Head exam: Present: atraumatic, normocephalic - Eye Eye exam: Present: normal appearance - ENT ENT exam: Present: mucous membranes moist - Neck Neck exam: Present: normal inspection - Respiratory Respiratory exam: Present: normal lung sounds bilaterally. Absent: respiratory distress - Cardiovascular Cardiovascular Exam: Present: regular rate, normal rhythm. Absent: systolic murmur, diastolic murmur, rubs, gallop - GI/Abdominal GI/Abdominal exam: Present: soft, normal bowel sounds - Rectal Rectal exam: Present: deferred - Extremities Exam Extremities exam: Present: normal inspection - Back Exam Back exam: Present: normal inspection - Neurological Exam Neurological exam: Present: alert, oriented X3 - Psychiatric Psychiatric exam: Present: agitated - Skin Skin exam: Present: warm, dry, intact, normal color. Absent: rash ED Course Vital Signs 01/18/21 08:44 Temperature 97.5 F L Pulse Rate 89 Respiratory 18 Rate Blood Pressure 156/101 [Right] O2 Sat by Pulse 99 Oximetry ED Recheck MDM - Core Measures Measure Exclusions: not indicated - Medical Decision Making Labs 01/18/21 01/18/21 01/18/21 10:42 10:42 Unknown WBC 6.8 RBC 4.57 Hgb 15.8 H Hct 45.6 MCV 100 H MCH 35 H MCHC 35 H RDW 13.5 Plt Count 238 Lymph % (Auto) 18.1 Clark % (Auto) 5.8 Eos % (Auto) 1.2 Baso % (Auto) 0.3 Lymph # (Auto) 1.2 Clark # (Auto) 0.4 Eos # (Auto) 0.1 Baso # (Auto) 0.0 Seg Neutrophils % 74.6 H Seg Neutrophils # 5.1 Sodium 139 Potassium 3.7 Chloride 99.5 Carbon Dioxide 29 Anion Gap 14 BUN 9 Creatinine 0.8 Estimated GFR > 60 BUN/Creatinine Ratio 11 Glucose 169 H Calcium 9.0 Total Bilirubin 0.30 AST 19 ALT 17 Alkaline Phosphatase 109 Total Protein 7.9 Albumin 4.8 Albumin/Globulin Ratio 1.5 Urine Color Colorless Urine Turbidity Clear Urine pH 7.0 Ur Specific [place] 1.001 L Urine Protein <15 mg/dl Urine Glucose (UA) Neg Urine Ketones Neg Urine Blood Neg Urine Nitrite Neg Urine Bilirubin Neg Urine Urobilinogen < 2.0 Ur Leukocyte Esterase Neg Urine WBC (Auto) < 1.0 Urine RBC (Auto) < 1.0 Vital Signs 01/18/21 08:44 Temperature 97.5 F L Pulse Rate 89 Respiratory 18 Rate Blood Pressure 156/101 [Right] O2 Sat by Pulse 99 Oximetry labs noted ua noted no hi no si no av hallucinations Medically cleared for psych care. Critical care attestation.: If time is entered above; I have spent that time in minutes in the direct care of this critically ill patient, excluding procedure time. ED Disposition Clinical Impression: Medical clearance for psychiatric admission Disposition: DC-01 TO HOME OR SELFCARE Is pt being admited?: No Does the pt Need Aspirin: No Condition: Stable Additional Instructions: medically cleared for psychiatric admit Referrals: KARLENE FLANNERY MD [Staff Physician] - 3-5 Days Time of Disposition: 13:06
[2021-01-18 13:47] LABS: Amphetamine Screen,Urine Negative; Benzodiazepines Screen,Urine Negative; Cannabinoid Screen,Urine Negative; Cocaine Screen,Urine Negative; Methadone Screen,Urine Negative; Opiate Screen,Urine Negative
[2021-01-18 14:10] VITALS: BP 118/74
== END 2021-01-18 14:09 | disposition home or self-care (01) ==
LOC: ED 08:33
DX: I10 Essential (primary) hypertension (principal); F17.200 Nicotine dependence, unspecified, uncomplicated; F12.10 Cannabis abuse, uncomplicated; Z04.6 Encounter for general psychiatric examination, requested by authority; Z79.899 Other long term (current) drug therapy
CPT/HCPCS: 36415; 80053; 80307; 81001; 85025; 99283

== ENCOUNTER 2022-04-30 08:06 | Emergency (ER) | payer SELFPAY ==
--- NOTE | 2022-04-30 08:32 | Emergency Department Report ---
ED General Adult HPI - General Stated complaint: LT FACIAL JAW PAIN PUI?: No Time Seen by Provider: 04/30/22 08:30 - Related Data Home Medications Medication Instructions Recorded Confirmed Last Taken amLODIPine [Norvasc] 10 mg PO DAILY 09/25/17 07/03/20 07/02/20 Previous Rx's Medication Instructions Recorded Last Taken Type Amoxicillin [Trimox CAP] 500 mg PO BID #20 capsule 04/30/22 Unknown Rx Ibuprofen [Motrin] 800 mg PO Q8HR PRN #30 tablet 04/30/22 Unknown Rx Allergies Allergy/AdvReac Type Severity Reaction Status Date / Time tomato Allergy Shortness Verified 05/24/17 18:12 of Breath ED Review of Systems ROS: Stated complaint: LT FACIAL JAW PAIN Other details as noted in HPI Comment: All other systems reviewed and negative ED Past Medical Hx - Past Medical History Previous Medical History?: Yes Hx Hypertension: Yes Additional medical history: pancreatitis - Surgical History Past Surgical History?: Yes Additional Surgical History: knee - Family History Family history: no significant - Social History Smoking Status: Current Every Day Smoker Substance Use Type: Alcohol, Marijuana - Medications Home Medications: Home Medications Medication Instructions Recorded Confirmed Last Taken Type amLODIPine [Norvasc] 10 mg PO DAILY 09/25/17 07/03/20 07/02/20 History Amoxicillin [Trimox CAP] 500 mg PO BID #20 capsule 04/30/22 Unknown Rx Ibuprofen [Motrin] 800 mg PO Q8HR PRN #30 tablet 04/30/22 Unknown Rx ED Course Vital Signs 04/30/22 08:30 Temperature 98.2 F Pulse Rate 98 H Respiratory 14 Rate Blood Pressure 122/80 O2 Sat by Pulse 98 Oximetry Critical care attestation.: If time is entered above; I have spent that time in minutes in the direct care of this critically ill patient, excluding procedure time. ED Disposition Clinical Impression: Jaw pain Disposition: 01 HOME / SELF CARE / HOMELESS Is pt being admited?: No Does the pt Need Aspirin: No Condition: Stable Instructions: Acute Pain, Adult Additional Instructions: meds as ordered follow up with dentist referral below Referrals: KARLENE FLANNERY MD [Primary Care Provider] - 3-5 Days Forms: Work/School Release Form(ED) Time of Disposition: 09:36
[2022-04-30 08:34] VITALS: BP 122/80
--- NOTE | 2022-04-30 09:11 | XRay Report ---
[facility] 4 VIEW INDICATION / CLINICAL INFORMATION: left jaw pain and swelling; no teeth; no ear pain COMPARISON: None available. FINDINGS: BONES / JOINT(S): No acute fracture or subluxation. No significant arthritis. SOFT TISSUES: No significant abnormality. ADDITIONAL FINDINGS: None. IMPRESSION: 1. No acute findings. Signer Name: Wiley Holland MD Signed: 04/30/2022 9:07 AM Workstation Name: [id number]
== END 2022-04-30 09:55 | disposition home or self-care (01) ==
LOC: ED 08:06
DX: R68.84 Jaw pain (principal); I10 Essential (primary) hypertension; F17.200 Nicotine dependence, unspecified, uncomplicated; F10.20 Alcohol dependence, uncomplicated; F12.90 Cannabis use, unspecified, uncomplicated; Z91.018 Allergy to other foods
CPT/HCPCS: 70110; 99283